=== PATIENT | female | born 1960 | race Caucasian/White ===

== ENCOUNTER 2017-09-18 16:26 | Inpatient (IN) | payer OTHER ==
[~2017-09-18] VITALS: Ht 172.7 cm; Wt 104.2 kg
[~2017-09-18 16:26] MED LIST: LOVENOX150 MG SUB-Q; WARFARIN SODIUM5 MG PO
[2017-09-18] MEDS ORDERED: XARELTO20 MG PO (16:55)
[2017-09-18] MEDS ORDERED: LISINOPRIL-HCT1 EAC1 PO (16:56)
--- NOTE | 2017-09-18 21:01 | NUR ---
PT ADMITTED FROM ED TO ROOM 113, ALERT ORIENTATED, STATES SHE VOMITED THIS AM, WITH LOOSE STOOLS, HASN'T FELT GOOD FOR 3 DAYS THINKING SHE CAUGHT THE FLU. CURRENTLY SHE IS EATING SANDWICH, GOT UP WITHOUT STAFF PRESENT AND USED BATHROOM BUT WAS INCONTIENT IN THE ATTENDS SHE WORE IN. STATES THAT SHE WEARS INCONT PRODUCT BECAUSE SHE CAN'T GET TO BATHROOM IN TIME, OR IF BATHROOM IS IN USE. SHE NOW HAS UNDERWEAR ON. SHE HAS BEEN COUNCELED TO USE CALL LIGHT FOR HELP. IV FLUIDS INFUSING PER ORDER. EDUCATED PT ON HOW TO USE THE CALL LIGHT.
--- NOTE | 2017-09-18 21:46 | NUR ---
PATIENT RESTING COMFORTABLY IN BED, BREATHING IS EVEN AND UNLABORED. DENIES NEEDS AT THIS TIME. ASSESSMENT DONE, MEDICATIONS GIVEN. CALL LIGHT WITHIN REACH, IV FLUIDS INFUSING.
--- NOTE | 2017-09-18 22:38 | NUR ---
PATIENT ASSISTED TO BATHROOM WITH SBA. STEADY GAIT, TOLERATING AMBULATION WELL. NOW RSTING IN BED AGAIN, BREATHING IS EVEN AND UNLABORED. DENIES NEEDS AT THIS TIME. CALL LIGHT WITHIN REACH, IV FLUIDS INFUSING.
--- NOTE | 2017-09-19 02:20 | NUR ---
PATIENT ASSISTED TO BATHROOM WITH SBA. NOW RESTING IN BED, BREATHING IS EVEN AND UNLABORED. DENIES NEEDS AT THIS TIME, DENIES PAIN. ASSESSMENT DONE, CALL LIGHT WITHIN REACH.
--- NOTE | 2017-09-19 04:36 | NUR ---
PATIENT RESTING COMFORTABLY IN BED, BREATHING IS EVEN AND UNLABORED. CALL LIGHT WITHIN REACH, IV FLUIDS INFUSING.
--- NOTE | 2017-09-19 05:20 | NUR ---
UPDATED DR. KHOURY REGARDING RECENT TRENDS IN BP. NO NEW ORDERS AT THIS TIME.
--- NOTE | 2017-09-19 05:31 | NUR ---
PATIENT'S NIGHT WAS UNEVENTFUL. SHE HAS BEEN RESTING THROUGHOUT SHIFT. URINE OUTPUT QS, NO COMPLAINTS OF PAIN. DR. KHOURY IS AWARE OF BP TRENDS, RN TO CONTINUE TO MONITOR. PATIENT IS ALERT AND ORIENTED, CALLS APPROPRIATELY. NO NAUSEA/VOMITING. HAS VASCULAR INSUFFICIENCY IN BLE, DISCOLORATION NOTED. HAS IV FLUIDS INFUSING, SBA TO BATHROOM. NO ACUTE CHANGES FROM BEGINNING OF SHIFT.
--- NOTE | 2017-09-19 06:35 | NUR ---
UPDATED DR. KHOURY REGARDING BP OF 89/58, MAP OF 64. NO NEW ORDERS AT THIS TIME.
--- NOTE | 2017-09-19 08:00 | NUR ---
PATIENT BP STABLE, COLLECTED MANUAL BP. PATIENT NOW SITTING UP AT EDGE OF BED EATING BREAKFAST. LUNG SOUNDS CLEAR. FULL BODY ASSESMENT DONE. PATIENT STATES " I HAVE NO PAIN AND AM NOT FEELING LIKE I WAS YESTERDAY, WHICH IS NICE". DISCUSSED POC FOR DAY.
--- NOTE | 2017-09-19 08:00 | NUR ---
PATIENT IN BED, EUFEMIA ALLISON IN TO DO B/P. B/P IN BETTER RANGE THAN IT HAS BEEN. PATIENT REPORTS SHES VERY HUNGRY, THIS FIELD ACCOUNT MANAGER ORDERED HER BREAKFAST. ASAEL EMPTIED, TALKED TO PATIENT ABOUT A SHOWER SOMETIME TODAY.CALL LIGHT IN REACH
[2017-09-19] MEDS ORDERED: TYLENOL325 MG PO (09:26)
--- NOTE | 2017-09-19 09:37 | NUR ---
MED REC COMPLETE WITH PATIENT INTERVIEW.
--- NOTE | 2017-09-19 10:13 | NUR ---
PATIENT SELF TRANSFERED TO BR AND BACK TO EDGE OF BED. VITALS AND I/OS DONE. PATIENT IN GREAT SPIRITS, VERY TALKATIVE ABOUT SEVERAL DIFFERENT TOPICS. CALL LIGHT IN REACH. NO OHTER NEEDS ATT.
--- NOTE | 2017-09-19 13:13 | NUR ---
PATIENT IN BED, APPEARS TO BE ASLEEP. FINISHED WITH LUNCH, MCDONALDS BAG ON TRAY ALSO. FRESH ICE WATER GIVEN.
--- NOTE | 2017-09-19 14:04 | NUR ---
PATIENT RESTING IN BED, APPEARS TO BE SLEEPING. VITALS AND I/O'S DONE CALL LIGHT IN REACH NO OTHER NEEDS.
--- NOTE | 2017-09-19 14:05 | NUR ---
PATIENT RESTING IN ROOM. NO COMPLAINTS OF PAIN. PATIENT REPORTS FEELING MUCH BETTER. LUNG SOUNDS CLEAR.
--- NOTE | 2017-09-19 16:37 | NUR ---
IV FLUIDS CONTINUE TO INFUSE NS @150 ML/HR. NO COMPLAINTS OF PAIN. AAOX3. EATING WELL, GOOD URINE OUTPUT. LUNG SOUNDS CLEAR. VS STABLE.
--- NOTE | 2017-09-19 18:16 | NUR ---
PATIENT SITTING AT EDGE OF BED, TABLE IN FRONT. PATIENT COMPLAINED SHE DIDN'T GET CHOCOLATECAKE SHE ORDERED WITH DINNER (SHE HAD VERY LARGE DINNER) SO THIS OPERATIONS MANAGER ORDERED A COOKIE INSTEAD. FRESH ICE WATER GIVEN. CALLL LUCAS IN REACH.
--- NOTE | 2017-09-19 18:52 | NUR ---
PATIENT UP THROUGHOUT DAY ON EDGE OF BED. AMBULATED X2 IN HALLS. IV FLUIDS CONTINUE TO INFUSE THROUGHOUT DAY, NS DECREASED TO 100ML/HR THIS EVENING. NO COMPLAINTS OF PAIN, EATING WELL. GOOD URINE OUTPUT. VS STABLE. PATIENT STATES " I AM FEELING A TON BETTER".
--- NOTE | 2017-09-19 19:10 | NUR ---
BEDSIDE REPORT RECEIVED FROM EUFEMIA ALLISON. PT AWAKE, SITTING UP AT SIDE OF BED, TALKING ON PHONE. NO REQUESTS AT THIS TIME. IVF INFUSING WNL. CALL LIGHT IN REACH.
--- NOTE | 2017-09-19 20:27 | NUR ---
PT ASSESSMENT COMPLETE. PT C/O SOME INCONTINENCE, GIVEN FRESH ATTENDS, SBA TO RESTROOM FOR VOID. PT BACK IN BED, NICOTINE PATCH APPLIED. PT DENIES PAIN, DENIES NAUSEA. LUNGS CLEAR THROUGHOUT ALL LOBES, BOWEL TONES ACTIVE. IV FLUSHES WNL, FLUID INFUSING WNL. GOLF CLUB HEAD FORMER SEPTEMBER NOW IN ROOM FOR VITALS. CALL LIGHT IN REACH, LIGHTS OFF IN ROOM.
--- NOTE | 2017-09-19 20:31 | NUR ---
VITALS DONE AND CHARTED. BEDSIDE TABLE AND CALL LIGHT WITHIN REACH. FRESH ICE WATER GIVEN
--- NOTE | 2017-09-19 21:04 | EKG ---
[facility] [address] [place], [place] [address] Signed Normal sinus rhythm Right atrial enlargement Nonspecific ST and T wave abnormality Abnormal ECG No previous ECGs available Confirmed by CLINTON KHOURY MD ([id number]) on 09/19/2017 9:04:07 PM Electronically Signed By: CLINTON KHOURY MD 09/19/17 2104 PATIENT NAME: ADELE VILLEGAS ANN Electrocardiogram DATE OF : 62 PHYSICIAN: CLINTON KHOURY MD REPORT #: [id number] REPORT IS CONFIDENTIAL AND NOT TO BE RELEASED WITHOUT AUTHORIZATION
--- NOTE | 2017-09-19 21:09 | NUR ---
Charge nurse rounding note: - Awakens easily, turns in bed by self. no c/o pain or sob, IVF infusing, Nicotine patch being applied by RN.
--- NOTE | 2017-09-19 22:57 | NUR ---
PT SLEEPING, EYES CLOSED, BREATHING NON-LABORED, VISIBLE CHEST RISE. LIGTHS OFF IN ROOM. IVF INFUSING.
--- NOTE | 2017-09-20 01:20 | NUR ---
PT SLEEPING, EYES CLOSED, BREATHING NON-LABORED, LIGHTS OFF IN ROOM.
--- NOTE | 2017-09-20 03:00 | NUR ---
PT LYING ON RIGHT SIDE. VISIBLE CHEST RISE, LIGHTS OFF IN ROOM.
--- NOTE | 2017-09-20 03:50 | NUR ---
IN PT ROOM, NEW IVF BAG HUNG, INFUSING WNL. SBA TO RESTROOM FOR VOID. PT GAIT STEADY, BACK TO BED. LUNGS CLEAR THROUGHOUT ALL LOBES. BOWEL TONES ACTIVE. PT HAS NO REQUESTS, BACK TO SLEEP. LIGHTS OFF IN ROOM. CALL LIGHT IN REACH.
--- NOTE | 2017-09-20 04:44 | NUR ---
PT SLEEPING THROUGHOUT SHIFT. UP TO RESTROOM FOR VOIDS INDEPENDENTLY W QUANTITY SUFFICIENT OUTPUT, ATTENDS IN PLACE FOR INCONTINENCE. IVF INFUSING WNL. PT DENIES PAIN, DENIES NAUSEA. VITALS STABLE THROUGHOUT SHIFT.
--- NOTE | 2017-09-20 06:00 | NUR ---
PT SLEEPING, AWAKENS TO RN VOICE. VITALS AND IS AND OS COMPLETE AT THIS TIME, PT WAS JUST UP TO RESTROOM FOR VOID. IVF INFUSING WNL. GIVEN FRESH ICE WATER, NO ADDL REQUESTS AT THIS TIME. CALL LIGHT IN REACH.
--- NOTE | 2017-09-20 09:00 | NUR ---
PATIENT UP THIS MORNING, INDEPENDANT IN ROOM. EATING WELL AND VOIDING WELL. FULL BODY ASSESMENT DONE. LUNG SOUNDS CLEAR. PLAN TO DISCHARGE TODAY.
--- NOTE | 2017-09-20 10:02 | NUR ---
PATIENT IN BED, APPEARS TO BE SLEEPING. VITALS AND I/OS DONE. STANDBY ASSIST TO BR. SET UP FOR AM CARE. PATIENT AGREED TO ABULATION IN [place] WITHIN THE HOUR. CALL LIGHT IN REACH
--- NOTE | 2017-09-20 11:00 | NUR ---
PATIENT AMBULATING HALLS WITH THIS REPAIR COIL WINDER. FRESH LINENS AND ICE WATER. PATIENT AGREED TO SHOWER THIS AFTERNOON. THIS REPAIR COIL WINDER ORDERED LUNCH FOR PATIENT. PATIENT SITTING IN CHAIR, CALL LIGHT IN REACH.
[2017-09-20] MEDS ORDERED: NICOTINE1 EAC1 TD (11:33)
--- NOTE | 2017-09-20 12:03 | NUR ---
ROUNDED WITH DR. KHOURY, NEW ORDER FOR DISCHARGE.
--- NOTE | 2017-09-20 12:51 | NUR ---
PATIENT LYING ON BED, PERSONAL CLOTHES ON, APPEARS TO BE SLEEPING. D/C VITALS AND I/OS DONE. CALL LIGHT IN REACH.
--- NOTE | 2017-09-20 13:00 | NUR ---
PROVIDED PATIENT WITH DISCHARGE. INSTRUCTED NOT TO TAKE BP MEDICATIONS AND NSAID. DISCUSSED FOLLLOW UP WITH PCP. PATIENT VERBALIZED UNDERSTANDING. PROVIDED PATIENT WHEEL CHAIR RIDE OUT TO CAR IN PARKING LOT. PATIENT APPEARED STEADY ON FEET.
== END 2017-09-20 13:25 | disposition home or self-care (01) | DRG 684 ==
LOC: ED 16:26 → MS 20:11
PROVIDERS: ADMIT Internal Medicine
DX: N17.9 Acute kidney failure, unspecified (principal); N14.1 Nephropathy induced by other drugs, medicaments and biological substances; T39.315A Adverse effect of propionic acid derivatives, initial encounter; T50.2X5A Adverse effect of carbonic-anhydrase inhibitors, benzothiadiazides and other diuretics, initial encounter; F17.210 Nicotine dependence, cigarettes, uncomplicated; I10 Essential (primary) hypertension; D72.829 Elevated white blood cell count, unspecified; M54.9 Dorsalgia, unspecified; G89.29 Other chronic pain; R25.2 Cramp and spasm; Z79.01 Long term (current) use of anticoagulants; Z79.899 Other long term (current) drug therapy; Z86.718 Personal history of other venous thrombosis and embolism
CPT/HCPCS: 36415; 71045; 80048; 80053; 81001; 82150; 82550; 82565; 82570; 83690; 84300; 84484; 84520; 84540; 85025; 85610; 85730; 87502; 93005; 93010; 96374; 96375; 99285; 99406; J1170; J1650; J2060; J2405; J7030

== ENCOUNTER 2019-03-27 20:35 | Emergency (ER) | payer OTHER ==
[~2019-03-27] VITALS: Ht 172.7 cm; Wt 101.6 kg
[~2019-03-27 20:35] MED LIST changes: +LISINOPRIL-HCT1 EAC1 PO; +NICOTINE1 EAC1 TD; +TYLENOL325 MG PO; +XARELTO20 MG PO
[2019-03-27] MEDS ORDERED: ELIQUIS5 MG PO (21:11)
[2019-03-27] MEDS ORDERED: NICOTINE PATCH1 EAC1 TD (21:12)
[2019-03-27] MEDS ORDERED: LISINOPRIL10 MG PO (21:12)
[2019-03-27] MEDS ORDERED: GABAPENTIN800 MG PO (21:12)
[2019-03-27] MEDS ORDERED: HYDROCHLOROTHIA25 MG PO (21:12)
[2019-03-27] MEDS ORDERED: AMITRIPTYLINE H25 MG PO (21:13)
[2019-03-27] MEDS ORDERED: POTASSIUM CHLO20 ME1 PO (23:23)
== END 2019-03-27 23:33 | disposition home or self-care (01) ==
LOC: ED 20:35
DX: E87.6 Hypokalemia (principal); I10 Essential (primary) hypertension; Z87.891 Personal history of nicotine dependence; Z79.899 Other long term (current) drug therapy
CPT/HCPCS: 80053; 81001; 84443; 85025; 99284

== ENCOUNTER 2019-11-26 08:00 | Day surgery (SDC) | payer OTHER ==
[~2019-11-26] VITALS: Ht 172.7 cm; Wt 105.2 kg
[~2019-11-26 08:00] MED LIST changes: +AMITRIPTYLINE H25 MG PO; +ELIQUIS5 MG PO; +GABAPENTIN800 MG PO; +HYDROCHLOROTHIA25 MG PO; +LISINOPRIL10 MG PO; +NICOTINE PATCH1 EAC1 TD; +POTASSIUM CHLO20 ME1 PO
--- NOTE | 2019-11-26 10:15 | NUR ---
11/26/19 1015 Sheets,Karina 1010 PT ARRIVED TO PACU ON 3L VIA NC, PT RESP EVEN AND UNLABORED AND PT TALKING TO RN. PT REORIENTED TO PACU AND THEN FALLS BACK TO SLEEP. VSS.
--- NOTE | 2019-11-26 12:50 | NUR ---
1120: PATIENT BACK IN DAY SURGERY ROOM FROM PACU. PATIENT ASSISTED OOB AND TO BATHROOM. GAIT STEADY TO AND FROM BATHROOM. VS CHECKED. 1130: IV DC'D WNL. TIP INTACT. DRESSING APPLIED. DISCHARGE INSTRUCTIONS GIVEN TO PATIENT. PATIENT GETTING DRESSED. 1145: PATIENT DISCHARGED TO HOME VIA WHEELCHAIR WITH FRIEND.
--- NOTE | 2019-11-27 08:43 | OR ---
[facility] [address], [place] [address] Signed DATE OF OPERATION: 11/26/2019 SURGEON: Vilma Jordan MD PREOPERATIVE DIAGNOSIS: Father with a history of colonic polyps greater than age 60. POSTOPERATIVE DIAGNOSES: 1. Minimal internal hemorrhoids. 2. Minimal sigmoid diverticulosis. 3. Multiple 3 mm rectal polyps at 10 cm. 4. An 8 mm polyp at 16 cm (proximal rectum). 5. A 10 mm pedunculated polyp at 24 cm (snare). 6. An 8 mm polyp at 55 cm. 7. A 4 mm polyp in mid right colon. 8. A 6 mm polyp at 40 cm. 9. A 6 mm polyp at 20 cm. PROCEDURE: Colonoscopy with hot biopsy and snare polypectomy. ESTIMATED BLOOD LOSS: None. INDICATIONS: Paulina is a 58-year-old female who asked to see me for a colonoscopy. Her father had colonic polyps removed over the age of 60. She is not sure if her mother had colonic polyps. However, her mother has been through colonoscopies. She told me she has no brother. She herself has never had a previous colonoscopy. She has no lower GI complaints. I gave her a pamphlet on colonoscopy in the office. We had reviewed that together. She understands the nature of the test along with the risks including, but not limited to gas bloating, crampy abdominal pain, bleeding, perforation requiring surgery, and missed diagnosis. She also understands the need for IV conscious sedation. She had expressed understanding and wished to proceed. DESCRIPTION OF PROCEDURE: Paulina was taken into our endoscopy suite and placed in the left lateral decubitus position. She was given IV sedation with 3 mg of Versed and 100 mcg of fentanyl. 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 We gave her heparin 5000 units subcu prior to the procedure. A Electronically Signed By: VILMA JORDAN MD 11/27/19 0843 PATIENT NAME: PAULINA VILLEGAS ANN OPERATIVE REPORT DATE OF : 62 REPORT #: [id number] PHYSICIAN: VILMA JORDAN MD PCP: ANJANA ANDREW MD REPORT IS CONFIDENTIAL AND NOT TO BE RELEASED WITHOUT AUTHORIZATION [facility] [address], [place] [address] Signed digital rectal exam was performed and this was unremarkable. The adult colonoscope was introduced and advanced under direct visualization of camera without difficulty. Her prep was quite good. We could easily see the appendiceal orifice and the ileocecal valve. The scope was then slowly withdrawn. We did see diverticula in the sigmoid colon. There was small in size few in number and scattered about. The above-mentioned polyps were removed with the help of hot biopsy forceps. We did use our snare for the pedunculated polyp at 24 cm. The scope had been retroflexed in the rectum and we could see just a small internal hemorrhoid columns. After this, the gas was suctioned out and the colonoscope removed and Paulina tolerated the procedure quite well. RECOMMENDATIONS: I will see Paulina back in my office in 7 to 14 days to review her results. Vilma Jordan MD ALB/MODL /[id number] cc: MD Anjana Lyles MD Copies: VILMA JORDAN MD ~ Electronically Signed By: VILMA JORDAN MD 11/27/19 0843 PATIENT NAME: PAULINA VILLEGAS OPERATIVE REPORT DATE OF : 62 REPORT #: [id number] PHYSICIAN: VILMA JORDAN MD PCP: ANJANA ANDREW MD REPORT IS CONFIDENTIAL AND NOT TO BE RELEASED WITHOUT AUTHORIZATION
--- NOTE | 2019-11-30 11:30 | PATH ---
[facility] [address] [place], [place] [address] Signed SPECIMEN(S): A COLON POLYP AT 10 CM SPECIMEN(S): B COLON POLYP AT 16 CM SPECIMEN(S): C COLON POLYP AT 24 CM SPECIMEN(S): D COLON POLYP 55 CM SPECIMEN(S): E MID ASCENDING POLYP SPECIMEN(S): F COLON POLYP AT 48 CM SPECIMEN(S): G COLON POLYP AT 20 CM SPECIMEN SOURCE: A. COLON POLYP AT 10 CM B. COLON POLYP AT 16 CM C. COLON POLYP AT 24 CM D. COLON POLYP 55 CM E. MID ASCENDING POLYP F. COLON POLYP AT 48 CM G. COLON POLYP AT 20 CM CLINICAL HISTORY: Colonoscopy. Pre: Family history of colon polyps. Post: Colon polyps, rectal polyp, diverticulosis, internal hemorrhoids. MICROSCOPIC DESCRIPTION: Histologic sections of all submitted blocks are examined by light microscopy. These findings, together with the gross examination, support the pathologic diagnosis. FINAL PATHOLOGIC DIAGNOSIS: A. Colon, polyp at 10 cm, polypectomy: - Fragments of hyperplastic polyp. - Negative for dysplasia or malignancy. B. Colon, polyp at 16 cm, polypectomy: - Fragments of hyperplastic polyp. - Negative for dysplasia or malignancy. C. Colon, polyp at 24 cm, polypectomy: - Tubular adenoma. - Negative for high-grade dysplasia or malignancy. D. Colon, polyp at 55 cm, polypectomy: - Fragments of tubular adenoma. - Negative for high-grade dysplasia or malignancy. E. Colon, mid ascending, polyp, polypectomy: - Cauterized colonic mucosa, see Comment. - Negative for high-grade dysplasia or malignancy. PATIENT NAME: ADELE VILLEGAS PATHOLOGY DATE OF : 62 REPORT #: [id number] PHYSICIAN: JAQUELIN LUND PCP: ZACKARY ANDREW MD REPORT IS CONFIDENTIAL AND NOT TO BE RELEASED WITHOUT AUTHORIZATION [facility] [address] [place], [place] [address] Signed F. Colon, polyp at 48 cm, polypectomy: - Fragments of tubular adenoma. - Negative for high-grade dysplasia or malignancy. G. Colon, polyp at 20 cm, polypectomy: - Hyperplastic polyp. - Negative for dysplasia or malignancy. COMMENT: Regarding specimen E: Multiple additional deeper levels were examined. The cautery artifact precludes definitive evaluation for low-grade dysplasia. Clinical correlation required. NAL:cml:C2NR GROSS DESCRIPTION: Seven specimens are received in seven containers, labeled "LH." A. The specimen, labeled "LH, #1," and designated on the requisition "colon polyp at 10 cm," is received in formalin and consists of two charlton soft tissue polypoid fragments that measure 0.4 cm in greatest dimension. The specimen is entirely submitted in cassette (A1). B. The specimen, labeled "LH, #2," and designated on the requisition "colon polyp at 16 cm," is received in formalin and consists of four charlton soft tissue fragments that measure 0.3 cm in greatest dimension. The specimen is entirely submitted in cassette (B1). C. The specimen, labeled "LH, #3," and designated on the requisition "colon polyp at 24 cm," is received in formalin and consists of one charlton-brown soft tissue polypoid fragment that measures 0.5 x 0.4 x 0.9 cm in greatest dimension. The specimen is inked black, bisected and entirely submitted in cassette (C1). D. The specimen, labeled "LH, #4," and designated on the requisition "colon polyp at 55 cm," is received in formalin and consists of two charlton soft tissue fragments that measure 0.4 cm in greatest dimension. The specimen is entirely submitted in cassette (D1). E. The specimen, labeled "LH, #5," and designated on the requisition "mid ascending polyp," is received in formalin and consists of one charlton soft tissue fragment that measures 0.4 cm in greatest dimension. The specimen is entirely submitted in cassette (E1). F. The specimen, labeled "LH, #6," and designated on the requisition "colon polyp at 48 cm," is received in formalin and consists of three charlton soft tissue fragments that measure 0.3 cm in greatest dimension. The specimen is entirely submitted in cassette (F1). G. The specimen, labeled "LH, #7," and designated on the requisition "colon PATIENT NAME: ADELE VILLEGAS PATHOLOGY DATE OF : 62 REPORT #: [id number] PHYSICIAN: JAQUELIN PATHOLOGY PCP: ZACKARY ANDREW MD REPORT IS CONFIDENTIAL AND NOT TO BE RELEASED WITHOUT AUTHORIZATION [address] [address] Signed polyp at 20 cm," is received in formalin and consists of one charlton soft tissue fragment that measures 0.4 cm in greatest dimension. The specimen is entirely submitted in cassette (G1). AT (under the direct supervision of a pathologist) The Gross Description was prepared using a voice recognition system. The report was reviewed for accuracy; however, sound-alike word errors, addition and/or deletions may occur. If there is any question about this report, please contact Client Services. PERFORMING LABORATORY: The technical component was performed by [email or web address] [address] (Burlesque Dancer: Ping Tolentino MD; CLIA# [id number]). [email or web address] [address] [place] [address] (CLIA# [id number]). Diagnostician: Taylor Christine MD Pathologist Electronically Signed 11/30/2019 Copies: ~ PATIENT NAME: ADELE VILLEGAS PATHOLOGY DATE OF : 62 REPORT #: [id number] PHYSICIAN: JAQUELIN LUND PCP: ZACKARY ANDREW MD REPORT IS CONFIDENTIAL AND NOT TO BE RELEASED WITHOUT AUTHORIZATION
== END 2019-11-26 11:45 | disposition home or self-care (01) ==
LOC: OPS 08:00 → DS 08:02 → OPS 09:00 → DS 09:45 → OPS 09:45
PROVIDERS: Colon & Rectal Surgery
PROC: 0DBE8ZZ Excision of Large Intestine, Via Natural or Artificial Opening Endoscopic (ICD-10-PCS; 2019-11-26)
PROC: 0DBK8ZZ Excision of Ascending Colon, Via Natural or Artificial Opening Endoscopic (ICD-10-PCS; principal; 2019-11-26 09:00)
DX: Z12.11 Encounter for screening for malignant neoplasm of colon (principal); D12.6 Benign neoplasm of colon, unspecified; K63.5 Polyp of colon; K64.8 Other hemorrhoids; K57.30 Diverticulosis of large intestine without perforation or abscess without bleeding; I10 Essential (primary) hypertension; F17.210 Nicotine dependence, cigarettes, uncomplicated; Z83.71 Family history of colonic polyps; Z79.899 Other long term (current) drug therapy
CPT/HCPCS: 88305; 99153; G0500; J1644; J2250; J3010; J7121

== ENCOUNTER 2021-08-25 19:17 | Emergency (ER) | payer OTHER ==
[~2021-08-25] VITALS: Ht 172.7 cm; Wt 102.1 kg
[2021-08-25] MEDS ORDERED: LASIX20 MG PO (20:57)
[2021-08-25] MEDS ORDERED: ULTRAM50 MG PO (20:57)
== END 2021-08-25 21:13 | disposition home or self-care (01) ==
LOC: ED 19:17
DX: R60.0 Localized edema (principal); Z86.718 Personal history of other venous thrombosis and embolism; I10 Essential (primary) hypertension; F17.200 Nicotine dependence, unspecified, uncomplicated; Z88.8 Allergy status to other drugs, medicaments and biological substances; Z79.01 Long term (current) use of anticoagulants
CPT/HCPCS: 36415; 80048; 83880; 85025; 96374; 99283-25; J1940

== ENCOUNTER 2023-01-17 12:04 | Emergency (ER) | payer OTHER ==
[~2023-01-17] VITALS: Ht 177.8 cm; Wt 100.7 kg
[~2023-01-17 12:04] MED LIST changes: +LASIX20 MG PO; +ULTRAM50 MG PO
--- OUTSIDE RECORDS SUMMARY | 2023-01-17 12:09 | XMS ---
PreManage Notification: ADELE VILLEGAS Security Wood Crew Supervisor Events No recent Security Events currently on file CRITERIA MET - [facility] CARE PROVIDERS -, Nora- Dentist: Ribbon Lapper Tender [facility] PHONE: [phone] -Jose G- Dentist: Ribbon Lapper Tender [facility] PHONE: [phone] SIDDHARTHA MCGRATH Air Brake Worker: Foot \T\ Ankle Surgery Current PHONE: [phone] JEREMY JJ Internal Medicine Current PHONE: [phone] ADEBAYO AGUILAR Nurse Practitioner: Family Current PHONE: Unknown GENEVA CUEVA Internal Medicine Current PHONE: [phone] TIMA COTTRELL Nurse Practitioner: Family Current PHONE: [phone] NICOLE GARG Nurse Practitioner Current BEL[facility]N PHONE: [phone] Anayeli Bhagat Trim Machine Adjuster/Bundle Breaker 12/22/2022-Current PHONE: [phone] [facility]: [phone] ANGELA WILSON Nurse Practitioner: Current PHONE: Unknown Kori has no Care Guidelines for this patient. ESuzie VISIT COUNT (12 MO.) [address] [place] [address] KULDIP Peguero TOTAL 2 NOTE: Visits indicate total known visits. 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
[2023-01-17] MEDS ORDERED: LYRICA25 MG PO (14:11)
[2023-01-17] MEDS ORDERED: ELIQUIS5 MG PO (14:42)
[2023-01-17 14:52] VITALS: BP 146/82
== END 2023-01-17 14:55 | disposition home or self-care (01) ==
LOC: ED 12:04
DX: G62.9 Polyneuropathy, unspecified (principal); M79.605 Pain in left leg; L97.529 Non-pressure chronic ulcer of other part of left foot with unspecified severity; I10 Essential (primary) hypertension; B19.20 Unspecified viral hepatitis C without hepatic coma; F17.200 Nicotine dependence, unspecified, uncomplicated; Z86.718 Personal history of other venous thrombosis and embolism; Z79.01 Long term (current) use of anticoagulants
CPT/HCPCS: 36415; 80053; 83605; 85025; 93926; 96374; 96375; 99284 25; J1885; J2060; J2270; J2405

== ENCOUNTER 2023-06-07 11:31 | Emergency (ER) | payer OTHER ==
[~2023-06-07] VITALS: Ht 177.8 cm; Wt 105.6 kg
[~2023-06-07 11:31] MED LIST changes: +LYRICA25 MG PO
[2023-06-07] MEDS ORDERED: HYDROCODON-ACE1 EA10 (11:43)
[2023-06-07 13:52] LABS: EOSINOPHILS 1.7 % (0-6); HEMATOCRIT 40.2 % (35.0-50.0); HEMOGLOBIN 13.8 g/dL (12.0-18.0); LYMPHOCYTES 31.9 % (24-44); MCH 31.4 (27-36); MCHC 34.3 g/dl (30-36); MCV 91.3 fl (81-99); MONOCYTES 8.4 % (0-12); PLATELET COUNT 287 K/uL (140-440); RDW 13.7 (10.5-15.0)
[2023-06-07 14:13] LABS: ALBUMIN 3.7 g/dL (3.4-5.0); ALBUMIN/GLOBULIN RATIO 0.97 (1.1-2.4); ANION GAP 16.5 (7-21); BILIRUBIN, TOTAL 0.2 ng/dL (0.2-1.0); BUN/CREATININE RATIO 22.66 (6.0-28.6); CALCIUM 9.3 mg/dL (8.5-10.1); CREATININE, SERUM 0.75 mg/dL (0.55-1.02); POTASSIUM 3.5 mmol/L (3.5-5.1); PROTEIN, TOTAL 7.5 g/dL (6.4-8.2)
[2023-06-07] MEDS ORDERED: HYDROCODON-ACE1 EA10 PO (15:21)
[2023-06-07 15:43] VITALS: BP 150/97
== END 2023-06-07 15:42 | disposition home or self-care (01) ==
LOC: ED 11:31
PROVIDERS: Emergency Medicine
DX: I73.9 Peripheral vascular disease, unspecified (principal); L97.529 Non-pressure chronic ulcer of other part of left foot with unspecified severity; L97.519 Non-pressure chronic ulcer of other part of right foot with unspecified severity; I10 Essential (primary) hypertension; F17.200 Nicotine dependence, unspecified, uncomplicated; Z88.5 Allergy status to narcotic agent; Z79.01 Long term (current) use of anticoagulants; Z79.899 Other long term (current) drug therapy
CPT/HCPCS: 36415; 80053; 85025; 99283

== ENCOUNTER → 2023-08-21 | Emergency (ER) | payer OTHER ==
[~2023-08-21] VITALS: Ht 177.8 cm; Wt 98.0 kg
[~2023-08-21] MED LIST changes: +AMOX TR-K CLV1 EACH PO; +AMOXICILLIN 500 MG CAP PO SCH; +APIXABAN 5 MG TAB PO SCH; +DULOXETINE HCL 60 MG CAP PO SCH; +DULOXETINE HCL30 MG PO; +HYDROCODON-ACE1 EA10; +HYDROCODON-ACE1 EA10 PO; +HYDROCODON-ACE1 EAC8 PO; +HYDROCODONE/ACETA 5/325 TAB PO PRN; +HYDROCODONE/APAP 10/325 1 TAB PO PRN; +PREGABALIN 50 MG CAP PO SCH; +PREGABALIN50 MG PO
--- OUTSIDE RECORDS SUMMARY | 2023-08-21 19:16 | XMS ---
PreManage Notification: ADELE VILLEGAS Security Chargeback Specialist Events No recent Security Events currently on file CRITERIA MET - [facility] - [facility] - 2 Visits in 30 Days CARE PROVIDERS Anayeli Bhagat Asp Developer/7Th Grade Social Studies Teacher 07/25/2023-Current PHONE: [phone] -Nora- Dentist: Plush Cutter [facility] PHONE: [phone] -Jose G- Dentist: Plush Cutter [facility] PHONE: [phone] SIDDHARTHA MCGRATH Bottom Precipitator Operator: Foot \T\ Ankle Surgery Current PHONE: [phone] JEREMY JJ Internal Medicine Current PHONE: [phone] ADEBAYO AGUILAR Nurse Practitioner: Family Current PHONE: Unknown GENEVA CUEVA Internal Medicine Current PHONE: [phone] TIMA COTTRELL Nurse Practitioner: Psychiatric/Mental Health Current PHONE: [phone] NICOLE GARG Nurse Practitioner Jluis MELISSA PHONE: [phone] [facility]: [facility] Current \F\ [facility] PHONE: [phone] RALF TOPETE Family [facility] Current PHONE: [phone] ANGELA WILSON Nurse Practitioner: Family Current PHONE: Unknown Kori has no Care Guidelines for this patient. Lucas VISIT COUNT (12 MO.) Ramo Peguero TOTAL 4 NOTE: Visits indicate total known visits. ED/UCC VISIT TRACKING (12 MO.) 08/21/2023 19:14 [facility] [place] TYPE: Emergency COMPLAINT: - WOUND CHECK 08/13/2023 12:07 [facility] [place] TYPE: Emergency COMPLAINT: - FOOT PAIN 06/07/2023 11:33 [facility] [place] TYPE: Emergency COMPLAINT: - BOTH FEET WOUNDS/PAIN DIAGNOSES: - Allergy status to narcotic agent - Essential (primary) hypertension - intermediate accountant (current) use of anticoagulants - Nicotine dependence, unspecified, uncomplicated - Non-pressure chronic ulcer of other part of left foot with unspecified severity - Non-pressure chronic ulcer of other part of right foot with unspecified severity - Other lobsterman (current) drug therapy - Peripheral vascular disease, unspecified 01/17/2023 12:04 [facility] [place] TYPE: Emergency COMPLAINT: - WEAKNESS DIAGNOSES: - Essential (primary) hypertension - intermediate accountant (current) use of anticoagulants - Nicotine dependence, unspecified, uncomplicated - Non-pressure chronic ulcer of other part of left foot with unspecified severity - Pain in left leg - Personal history of other venous thrombosis and embolism - Polyneuropathy, unspecified - Unspecified viral hepatitis C without hepatic coma INPATIENT VISIT TRACKING (12 MO.) 08/13/2023 12:08 [facility] [place] TYPE: Observation COMPLAINT: - CELLULITIS DIAGNOSES: - Allergy status to narcotic agent - Cellulitis of left lower limb - Cellulitis of right lower limb - Hypokalemia - Obesity, unspecified - Other lobsterman (current) drug therapy - Pain in unspecified foot [email or web address]
[2023-08-21 20:29] LABS: BASOPHILS 0.6 % (0-2); EOSINOPHILS 1.4 % (0-6); HEMATOCRIT 50.1 % (35.0-50.0); HEMOGLOBIN 16.9 g/dL (12.0-18.0); LYMPHOCYTES 21.3 % (24-44); MCH 30.8 (27-36); MCHC 33.8 g/dl (30-36); MCV 91.2 fl (81-99); MONOCYTES 7.7 % (0-12); PLATELET COUNT 315 K/uL (140-440); RBC 5.49 M/ul (4.3-5.7); RDW 14.1 (10.5-15.0)
[2023-08-21 20:48] LABS: ALBUMIN 3.7 g/dL (3.4-5.0); ALBUMIN/GLOBULIN RATIO 0.74 (1.1-2.4); ANION GAP 16.7 (7-21); BILIRUBIN, TOTAL 0.4 ng/dL (0.2-1.0); BUN/CREATININE RATIO 16.66 (6.0-28.6); CALCIUM 9.9 mg/dL (8.5-10.1); CREATININE, SERUM 0.84 mg/dL (0.55-1.02); POTASSIUM 3.7 mmol/L (3.5-5.1); PROTEIN, TOTAL 8.7 g/dL (6.4-8.2)
[2023-08-22 20:05] VITALS: BP 134/24
== END ==
LOC: ED 19:14
PROVIDERS: Emergency Medicine
DX: L97.529 Non-pressure chronic ulcer of other part of left foot with unspecified severity (principal); L97.519 Non-pressure chronic ulcer of other part of right foot with unspecified severity; G89.29 Other chronic pain; Z60.9 Problem related to social environment, unspecified; I10 Essential (primary) hypertension; F17.200 Nicotine dependence, unspecified, uncomplicated; Z88.5 Allergy status to narcotic agent; Z79.01 Long term (current) use of anticoagulants; Z79.899 Other long term (current) drug therapy
CPT/HCPCS: 36415; 73630; 80053; 85025; A9270

== ENCOUNTER 2025-01-05 12:41 | Emergency (ER) | payer OTHER ==
[~2025-01-05] VITALS: Ht 177.8 cm; Wt 103.0 kg
[~2025-01-05 12:41] MED LIST changes: -AMOXICILLIN 500 MG CAP PO SCH; -APIXABAN 5 MG TAB PO SCH; +CYMBALTA30 MG PO; -DULOXETINE HCL 60 MG CAP PO SCH; -HYDROCODONE/ACETA 5/325 TAB PO PRN; -HYDROCODONE/APAP 10/325 1 TAB PO PRN; -PREGABALIN 50 MG CAP PO SCH
[2025-01-05] MEDS ORDERED: SODIUM CHLORIDE 0.9% 1,000 ML IV PRN (13:00)
[2025-01-05] MEDS ORDERED: MORPHINE SULFATE 4 MG/ML VIAL IV ONE (13:15)
[2025-01-05] MEDS ORDERED: BACLOFEN20 MG PO (13:25)
[2025-01-05] MEDS ORDERED: POLYETHYLENE GL17 GM PO (13:25)
[2025-01-05] MEDS ORDERED: AMLODIPINE BESY10 MG PO (13:25)
[2025-01-05] MEDS ORDERED: DIAZEPAM2 MG PO (13:25)
[2025-01-05 13:36] LABS: BASOPHILS 0.7 % (0.1-1.2); EOSINOPHILS 0.6 % (0.7-5.8); LYMPHOCYTES 16.1 % (19.3-51.7); MCH 29.5 PG (25.6-32.2); MCHC 33.6 g/dL (32.2-35.5); MCV 88.1 fL (79.4-94.8); MONOCYTES 6.9 % (4.7-12.5); NEUTROPHILS 75.4 % (34.0-71.1); RBC 5.11 M/uL (3.93-5.22)
[2025-01-05 13:49] LABS: INR 1.14 (0.80-1.30); PROTIME 13.8 Sec (11.2-14.2)
[2025-01-05 13:55] LABS: ALCOHOL, MEDICAL <3 ng/dL (<3); ALT (SGPT) 24 U/L (14-59); AST (SGOT) 18 U/L (15-37); GLOMERULAR FILTRATION RATE,EST 84 mL/min (>60); PROTEIN, TOTAL 7.9 g/dL (6.4-8.2); UREA NITROGEN 25 mg/dL (7-18)
[2025-01-05 13:59] LABS: LACTIC ACID, BLOOD 1.6 mmol/L (0.4-2.0)
[2025-01-05] MEDS ORDERED: LORazepam 2 MG/ML VIAL IV ONE (14:00)
[2025-01-05 14:43] LABS: BLOOD/HGB, URINE SMALL (Negative); KETONE, URINE TRACE (Negative); LEUK ESTERASE, URINE NEGATIVE (negative); NITRITE, URINE NEGATIVE (negative)
[2025-01-05 15:03] LABS: BACTERIA, URINE NONE SEEN /hpf (negative); CASTS, URINE WBC CAST 1+ \\lpf; CRYSTALS, URINE NONE SEEN (0-1+); EPITHELIAL CELLS, URINE 0 /lpf (0-1+); REFLEX CULTURE, URINE No (No)
[2025-01-05 15:04] LABS: AMPHETAMINES, URINE POSITIVE (NEGATIVE); BARBITURATES, URINE NEGATIVE (NEGATIVE); BENZODIAZEPINE, URINE POSITIVE (NEGATIVE); CANNABINOID, URINE POSITIVE (NEGATIVE); COCAINE, URINE NEGATIVE (NEGATIVE); ECSTASY, URINE NEGATIVE (NEGATIVE); FENTANYL, URINE NEGATIVE (NEGATIVE); METHADONE, URINE NEGATIVE (NEGATIVE); OPIATES, URINE POSITIVE (NEGATIVE); OXYCODONE, URINE NEGATIVE (NEGATIVE); PHENCYCLIDINE, URINE NEGATIVE (NEGATIVE)
[2025-01-06 08:00] VITALS: BP 158/97
== END 2025-01-06 08:00 | disposition home or self-care (01) ==
LOC: ED 12:41
PROVIDERS: Emergency Medicine
DX: I82.503 Chronic embolism and thrombosis of unspecified deep veins of lower extremity, bilateral (principal); I10 Essential (primary) hypertension; F17.200 Nicotine dependence, unspecified, uncomplicated; Z88.5 Allergy status to narcotic agent; Z79.01 Long term (current) use of anticoagulants; Z79.899 Other long term (current) drug therapy
CPT/HCPCS: 36415; 51701; 80053; 80307; 81001; 83605; 85025; 85610; 85730; 87040; 93926; 93970; 99284-25; G0480; J0696; J2060; J2270